=== PATIENT | female | born 1970 | race Caucasian/White ===

== ENCOUNTER 2017-10-02 00:50 | Inpatient (IN) | END 2017-10-03 18:13 | disposition left against medical advice (07) | DRG 281 ==

== ENCOUNTER → 2017-10-08 | Outpatient (CLI) | END | disposition home or self-care (01) ==

== ENCOUNTER 2018-03-25 19:42 | Inpatient (IN) | END 2018-03-29 15:50 | disposition home or self-care (01) | DRG 622 ==

== ENCOUNTER 2018-04-07 14:22 | Emergency (ER) | END 2018-04-07 20:37 | disposition home or self-care (01) ==

== ENCOUNTER 2018-05-13 19:16 | Inpatient (IN) | END 2018-05-20 15:20 | disposition home or self-care (01) | DRG 872 ==

== ENCOUNTER 2018-06-13 17:20 | Inpatient (IN) | END 2018-06-14 17:10 | disposition home or self-care (01) | DRG 293 ==